=== PATIENT | male | born 1980 | race Caucasian/White ===

== ENCOUNTER 2023-06-23 07:52 | Outpatient (REF) | payer OTHER, SELFPAY ==
[2023-06-23 11:21] LABS: Anion Gap 7.7 mmol/L (3-11); BUN 11 mg/dL (7-18); CO2 29.3 mmol/L (21.0-32.0); CREATININE 0.8 mg/dL (0.70-1.30); Calcium 9.3 mg/dL (8.5-10.1); Calculated LDL 114 mg/dL (<100); Chloride 103 mmol/L (98-107); Cholesterol 183 mg/dL (<200); Estimated GFR 111.92 (mL/min/1.73m2); Glucose 106 mg/dL (74-106); HDL Cholesterol 54 mg/dL (40-60); Potassium 4.1 mmol/L (3.5-5.1); Sodium 140 mmol/L (136-145); Triglyceride 76 mg/dL (<150)
== END 2023-06-23 07:53 | disposition home or self-care (01) ==
LOC: NCHCN 07:52
PROVIDERS: PCP Nurse Practitioner Adult Health; Visit Provider Nurse Practitioner Adult Health
DX: Z13.220 Encounter for screening for lipoid disorders (principal); Z13.1 Encounter for screening for diabetes mellitus
CPT/HCPCS: 80048; 80061; 83036

== ENCOUNTER 2024-11-15 06:14 | Day surgery (SDC) | payer OTHER, SELFPAY ==
[2024-11-15 06:20] VITALS: BP 121/89; PULSE 81; RESP 16; TEMP 36.5; O2SAT 99
[2024-11-15] MEDS: Lactated Ringers 1,000 ML 80 ML IV (07:00)
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
[2024-11-15 07:25] VITALS: BMI 25.2
--- NOTE | 2024-11-15 08:13 | BOWEL_PTH ---
PATIENT: Colin Hickman LOC: [facility] U#:[id number] AGE/SX: 44/M ROOM: RE11/15/[address]: Addy Akbar : 1980 BED: DIS: 11/15/2024 SPEC #: [id number] RECD: 11/15/24 12:54 STATUS: ROLAND REDamon #: [id number] LEONIDES: 11/15/24 08:[address]: Addy Akbar DEPT: Surgical Specimen RECD BY: Lorraine Eisenberg ENTERED: 11/15/24 12:54 SP TYPE: Bowel OTHR DR: Lidia Pino APRN Tissues: 1 - BIOPSY BOWEL Procedures: GROSS AND MICRO LEVEL 4 Comments: [id number]
[2024-11-15 08:21] VITALS: BP 110/54; PULSE 96; RESP 18; TEMP 36.5; O2SAT 98
--- NOTE | 2024-11-15 08:25 | COLE_ITS ---
Date of service: 11/15/24 Time of Service: 08:25 Colonoscopy Report Procedure Description: PROCEDURES PERFORMED: 1. Colonoscopy with cold forceps polypectomy PREOPERATIVE DIAGNOSIS: Screening colonoscopy POSTOPERATIVE DIAGNOSIS: Hyperplastic rectal polyp, minimal sigmoid diverticu losis SURGEON: Akosua Akbar MD INDICATION for procedure: The patient is a 44-year-old man with no symptoms of concern. No family history of colon cancer. No previous colonoscopy. FINDINGS: Normal terminal ileum. No colon polyps. No inflammation anywhere. No redundancy or unusual turns. In the sigmoid colon there were a couple of small diverticuli noted. In the rectum a small 2-3 mm flat polyp that appears to be hyperplastic was removed with cold forceps technique. No obvious hemorrhoid disease. SURVEILLANCE interval/FOLLOW-UP: 10 years SPECIMENS: yes EBL: Minimal COMPLICATIONS: None QUALITY of prep: Excellent Procedure in detail: The patient gave written consent and was in agreement with the indications, the potential risks as well as the benefits of the procedure. They were taken to the endoscopy suite and laid in the left lateral decubitus position. A timeout was performed and anesthesia was administered which was tolerated well. I started the procedure. Digital rectal and visual examination was performed and grossly within normal limits. A well-lubricated flexible colonoscope was then introduced and passed without any notable difficulty all the way to the cecum identified by the ileocecal valve and the appendiceal orifice. The terminal ileum was deeply intubated and looked normal. The scope was then slowly withdrawn with the above-noted findings. The patient tolerated the procedure well and was taken to the PACU in hemodynamically stable condition.
--- NOTE | 2024-11-15 08:29 | W.PM.DSUDISC ---
Date of service: 11/15/24 Discharge Plan Disposition Patient Disposition: Home Condition: Good Discharge Details Attending Provider: Addy Akbar Primary Care Provider: Lidia Pino Home Meds and New Rx's Prescriptions: No Action psyllium Powder 2 tbsp PO DAILY Patient Comments: Pt reports 1-2 tablespoons. Rx Instructions: mix into at least 8 oz of water or juice before administering Discharge Instructions Additional Instructions: FINDINGS: No colon cancer and nothing suspicious for it! No adenomatous polyps. A small hyperplastic?appearing polyp was removed from your rectum. As you know, these are benign?polyps with no significance. It was removed to confirm benign histology for future reference. There were 2 or 3 tiny diverticuli present/developing in your sigmoid colon. No obvious hemorrhoid disease. Do another colonoscopy in 10 years. Activity:: Activity as Tolerated Diet:: As Tolerated
--- NOTE | 2024-11-15 08:44 | W.ANESPOSTOP ---
Postoperative Evaluation Date, Time and Location Date Performed: 11/15/24 Time Performed: 08:44 Patient Location: Day Surgery Unit Vital Signs Most Recent Imported Vital Signs: Most Recent Vital Signs Temp Pulse Resp BP Pulse Ox 36.5 C 96 H 18 110/54 L 98 11/15/24 08:21 11/15/24 08:21 11/15/24 08:21 11/15/24 08:21 11/15/24 08:21 Pain Score Most Recent Pain Score: Most Recent Pain Score Pain Level 0 11/15/24 08:21 Assessment Mental Status: Awake (Alert & Oriented to Patient Baseline) Airway and Respiratory Function: Patent airway with normal (patient baseline) respiratory exam Cardiovascular Function: Hemodynamically Stable Hydration Status: Adequately Hydrated Nausea & Vomiting: No Nausea or Vomiting Pain: Pt. Denies Any Pain Peripheral Nerve Block: Patient did not receive a nerve block
[2024-11-15 08:52] VITALS: BP 108/77; PULSE 78; RESP 18; TEMP 36.9; O2SAT 96
== END 2024-11-15 09:00 | disposition home or self-care (01) ==
PROVIDERS: PCP Nurse Practitioner Adult Health; Visit Provider Student in an Organized Health Care Education/Training Program
PROC: 0DJD8ZZ Inspection of Lower Intestinal Tract, Via Natural or Artificial Opening Endoscopic (ICD-10-PCS; CPT 45378; principal; 2024-11-15 07:30)
DX: Z12.11 Encounter for screening for malignant neoplasm of colon (principal); K62.1 Rectal polyp; K57.30 Diverticulosis of large intestine without perforation or abscess without bleeding
CPT/HCPCS: 45380; 88305; J2704

== ENCOUNTER 2025-03-31 17:50 | Emergency (ER) | payer OTHER, SELFPAY ==
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
[2025-03-31 17:52] VITALS: BP 122/77; PULSE 99; RESP 18; TEMP 36.6; O2SAT 96
[2025-03-31 17:57] VITALS: BP 122/77; PULSE 99; RESP 18; TEMP 36.6; O2SAT 96
[2025-03-31 18:17] LABS: Glucose Negative (Negative)
[2025-03-31 18:33] LABS: C & S Indicated? Yes; RBC Negative HPF (0-2)
[2025-03-31] MEDS: Tamsulosin 0.4 MG CAPCR PO (18:49)
[2025-03-31] MEDS: levoFLOXacin 250 MG TAB 750 MG PO (18:49)
== END 2025-03-31 18:55 | disposition home or self-care (01) ==
LOC: ER 18:46
PROVIDERS: Emergency Provider Emergency Medicine; PCP Nurse Practitioner Adult Health
DX: N41.0 Acute prostatitis (principal); R30.0 Dysuria
CPT/HCPCS: 99283 ×2; 81003; 81015; 87086

== ENCOUNTER 2025-07-22 03:12 | Outpatient (CLI) | payer OTHER, SELFPAY ==
[2025-07-22 08:15] LABS: Anion Gap 7.1 mmol/L (3-11); BUN 13 mg/dL (7-18); CO2 29.9 mmol/L (21.0-32.0); Calcium 8.8 mg/dL (8.5-10.1); Calculated LDL 129 mg/dL (<100); Chloride 102 mmol/L (98-107); Cholesterol 203 mg/dL (<200); Estimated GFR 110.53 (mL/min/1.73m2); Glucose 102 mg/dL (74-106); HDL Cholesterol 63 mg/dL (>or=40); Potassium 4.2 mmol/L (3.5-5.1); Sodium 139 mmol/L (136-145); Triglyceride 57 mg/dL (<150)
== END 2025-07-22 03:13 | disposition home or self-care (01) ==
PROVIDERS: PCP Nurse Practitioner Adult Health; Referring Provider Nurse Practitioner Adult Health; Visit Provider Nurse Practitioner Adult Health
DX: Z13.220 Encounter for screening for lipoid disorders (principal); Z13.1 Encounter for screening for diabetes mellitus
CPT/HCPCS: 36415; 80048; 80061